=== PATIENT | female | born 1990 | race Asian ===

== ENCOUNTER 2019-04-24 05:24 | Inpatient (IN) | payer BC, MEDICAID ==
[~2019-04-24 05:24] MED LIST: Bicitra 30 ML UDCUP PO SCH; CEFAZOLIN 2 GM in Premix Bag 1 BAG IVPB SCH; Ondansetron PF 4 MG/2 ML Vial IVP PRN; Promethazine HCl 25 MG/ML VIAL IM PRN; hydrALAZINE 20 MG/ML VIAL SLOW IVP PRN
[2019-04-24 06:20] LABS: Hemoglobin 11.2 g/dL (12.0-16.0); Mean Corpuscular HGB CONC 32.1 g/dL (32.0-36.0); Mean Corpuscular Hemoglobin 25.3 pg (27.0-31.0); Mean Corpuscular Volume 78.9 fL (78.0-98.0); RBC Distribution Width 14.9 % (11.5-14.5); Red Blood Cell (RBC) Count 4.44 mill/uL (4.20-5.40); White Blood Cell (WBC) Count 12.8 thou/uL (4.8-10.8)
[2019-04-24 06:23] VITALS: BMI 26.0
[2019-04-24 06:35] LABS: Mean Platelet Volume 11.4 fL (7.4-10.4); Platelet Count 101 thou/uL (130-400)
[2019-04-24 06:47] LABS: HBSAg Index 0.19 S/CO (0-0.99); Hep B Surf Ag Non-Reactive S/CO (NonReactive)
[2019-04-24 06:48] LABS: Syphilis Antibody Nonreactive (Nonreactive); Syphilis Antibody Index 0.04 S/CO (<1.00 Non-Reactive)
[2019-04-24] MEDS ORDERED: Ondansetron PF 4 MG/2 ML Vial ONE (07:11)
[2019-04-24] MEDS ORDERED: Oxytocin 10 UNITS/ML VIAL ONE ×4 (07:11→09:15)
[2019-04-24] MEDS ORDERED: MORPHINE 5 MG/10 ML PF VIAL ONE (07:12)
[2019-04-24] MEDS ORDERED: Promethazine HCl 25 MG/ML VIAL ONE (08:03)
[2019-04-24] MEDS ORDERED: Tranexamic Acid 1,000 MG/10 ML VIAL ONE (08:05)
[2019-04-24] MEDS ORDERED: Methylergonovine 0.2 MG/ML VIAL ONE (08:06)
[2019-04-24] MEDS ORDERED: Midazolam HCl 2 mg/2 ml Vial ONE ×2 (08:12→10:11)
[2019-04-24] MEDS ORDERED: PROPOFOL 20 ML ONE ×4 (08:12→09:44)
[2019-04-24] MEDS ORDERED: PROPOFOL 200 MG/20 ML VIAL ONE (10:00)
[2019-04-24 10:33] LABS: Mean Corpuscular HGB CONC 32.8 g/dL (32.0-36.0); Mean Corpuscular Volume 82.4 fL (78.0-98.0); Mean Platelet Volume 11.2 fL (7.4-10.4); Platelet Count 86 thou/uL (130-400); RBC Distribution Width 14.5 % (11.5-14.5); Red Blood Cell (RBC) Count 4.44 mill/uL (4.20-5.40); White Blood Cell (WBC) Count 14.7 thou/uL (4.8-10.8)
[2019-04-24] MEDS ORDERED: diphenhydrAMINE 50 MG/ML VIAL IVP PRN (10:47)
[2019-04-24] MEDS ORDERED: HYDROmorphone 2 MG/ML VIAL SLOW IVP PRN (10:47)
[2019-04-24] MEDS ORDERED: diphenhydrAMINE 25 MG CAP PO PRN (10:47)
[2019-04-24] MEDS ORDERED: Ondansetron PF 4 MG/2 ML Vial IVP PRN ×2 (10:47)
[2019-04-24] MEDS ORDERED: Naloxone HCl 0.4 mg/ml Vial IV PRN (10:47)
[2019-04-24] MEDS ORDERED: Promethazine HCl 25 MG SUPP PR PRN (10:47)
[2019-04-24] MEDS ORDERED: Meperidine HCl/PF 25 MG/ML VIAL IM PRN (10:47)
[2019-04-24] MEDS ORDERED: Lanolin Ointment 7 GM TUBE TOP PRN (10:47)
[2019-04-24] MEDS ORDERED: Promethazine HCl 25 MG/ML VIAL IM PRN ×2 (10:47)
[2019-04-24] MEDS ORDERED: hydrALAZINE 20 MG/ML VIAL SLOW IVP PRN (10:47)
[2019-04-24] MEDS ORDERED: Bisacodyl 10 MG SUPP PR PRN (10:47)
[2019-04-24] MEDS ORDERED: Meperidine HCl/PF 25 MG/ML VIAL SLOW IVP PRN (10:47)
[2019-04-24] MEDS ORDERED: Ondansetron HCl/PF 4 MG/2 ML Vial IVP PRN (10:47)
[2019-04-24] MEDS ORDERED: Adacel (T-DAP) 0.5 ML SYRINGE IM ONE (10:47)
[2019-04-24] MEDS ORDERED: L&D-Morphine 4 MG/ML VIAL SLOW IVP PRN (10:47)
[2019-04-24] MEDS ORDERED: Naloxone HCl 0.4 mg/ml Vial IVP PRN ×2 (10:47)
[2019-04-24] MEDS ORDERED: Ketorolac Tromethamine 30 MG/ML VIAL IVP SCH (11:00)
[2019-04-24] MEDS ORDERED: Communication Order-Pharmacy FS SCH (11:00)
[2019-04-24] MEDS: Lactated Ringer's 1,000 ML IV SCH ×4 (11:45→20:21)
[2019-04-24] MEDS ORDERED: Morphine 4 MG/ML VIAL ONE (15:34)
[2019-04-24] MEDS ORDERED: Morphine 2 MG/ML SYRINGE SLOW IVP PRN (15:44)
[2019-04-24] MEDS ORDERED: Morphine 4 MG/ML VIAL SLOW IVP PRN (18:45)
[2019-04-24] MEDS: Ibuprofen 800 MG TAB PO SCH ×2 (19:18→22:28)
[2019-04-24] MEDS: Ferrous Sulfate 325 MG TAB PO SCH (21:19)
[2019-04-24] MEDS: Ketorolac Tromethamine 30 MG/ML VIAL IVP PRN (22:24)
[2019-04-24] MEDS: Docusate Calcium (SURFAK) 240 MG CAP PO SCH (22:28)
[2019-04-24] MEDS: Ampicillin/Sulbactam 3 GM in Sodium Chloride 0.9% 100 ML IVPB SCH (22:51)
[2019-04-25] MEDS: HYDROcodone/Acetaminophen 5/325 mg Tablet PO PRN ×5 (00:50→22:22)
[2019-04-25 04:39] LABS: Hemoglobin 9.2 g/dL (12.0-16.0); Mean Corpuscular HGB CONC 33.4 g/dL (32.0-36.0); Mean Corpuscular Volume 80.8 fL (78.0-98.0); Mean Platelet Volume 10.7 fL (7.4-10.4); Platelet Count 93 thou/uL (130-400); RBC Distribution Width 14.5 % (11.5-14.5)
[2019-04-25] MEDS: Ampicillin/Sulbactam 3 GM in Sodium Chloride 0.9% 100 ML IVPB SCH ×2 (05:12→11:10)
[2019-04-25] MEDS: Lactated Ringer's 1,000 ML IV SCH ×4 (05:29→19:23)
[2019-04-25] MEDS: Ferrous Sulfate 325 MG TAB PO SCH ×2 (09:10→21:15)
[2019-04-25] MEDS: Prenatal Vitamin 1 TAB PO SCH (09:11)
[2019-04-25] MEDS: Docusate Calcium (SURFAK) 240 MG CAP PO SCH ×2 (09:11→21:15)
[2019-04-25] MEDS: Ibuprofen 800 MG TAB PO SCH ×3 (10:03→17:11)
[2019-04-25] MEDS: Simethicone Chewable 80 MG TAB PO PRN ×2 (10:42→21:15)
[2019-04-25] MEDS: Ketorolac Tromethamine 30 MG/ML VIAL IVP PRN (10:44)
[2019-04-25] MEDS ORDERED: Sodium Chloride 0.9% 20 ML ONE (10:53)
[2019-04-26] MEDS: Ibuprofen 800 MG TAB PO SCH ×3 (04:50→23:14)
[2019-04-26] MEDS: Lactated Ringer's 1,000 ML IV SCH ×2 (07:30→17:22)
[2019-04-26] MEDS: Docusate Calcium (SURFAK) 240 MG CAP PO SCH ×2 (09:13→23:15)
[2019-04-26] MEDS: Ferrous Sulfate 325 MG TAB PO SCH ×2 (09:13→23:15)
[2019-04-26] MEDS: Simethicone Chewable 80 MG TAB PO PRN (09:13)
[2019-04-26] MEDS: Prenatal Vitamin 1 TAB PO SCH (09:13)
[2019-04-26] MEDS: HYDROcodone/Acetaminophen 5/325 mg Tablet PO PRN ×2 (09:18→12:52)
[2019-04-27 06:26] VITALS: TEMP 98.3
[2019-04-27] MEDS: Ibuprofen 800 MG TAB PO SCH ×2 (07:10→08:17)
[2019-04-27] MEDS: Lactated Ringer's 1,000 ML IV SCH ×2 (08:15→08:35)
[2019-04-27] MEDS: Ferrous Sulfate 325 MG TAB PO SCH (08:17)
[2019-04-27] MEDS: Prenatal Vitamin 1 TAB PO SCH (08:17)
[2019-04-27] MEDS: Docusate Calcium (SURFAK) 240 MG CAP PO SCH (08:19)
[2019-04-27 09:09] VITALS: BP 112/67
--- NOTE | 2019-06-11 15:09 | OP ---
DATE OF PROCEDURE: 04/24/2019 PREOPERATIVE DIAGNOSES: 1. A 28-year-old G1 with complete previa. 2. Low transverse section at 37 weeks and 2 days. 3. Accreta with intraoperative hemorrhage. 4. 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 POSTOPERATIVE DIAGNOSES: 1. A 28-year-old G1 with complete previa. 2. Low transverse section at 37 weeks and 2 days. 3. Accreta with intraoperative hemorrhage. 4. 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 5. Live-born female weighing 6 pounds 2 ounces with Apgars of 8 and 9 respectively. PROCEDURES PERFORMED: 1. Primary low transverse section at 37 weeks and 2 days. 2. Management of intraoperative hemorrhage with packed red blood cells, methargen and tranexamic acid and Bakri balloon placement. ESTIMATED BLOOD LOSS: 3 L. QUANTITATIVE BLOOD LOSS: 3.2 L. ANESTHESIA: Initially a spinal, converted to general anesthesia. CLINICAL HISTORY: This patient is a 28-year-old [place] female who had an OB course complicated by first-trimester bleeding. She was managed on pelvic rest and then at her subsequent ultrasound for anatomy, it was noted that she had a complete previa. The patient was continued on pelvic rest and had no more incidence of spontaneous bleeding. She was also sent to Maternal Medicine for evaluation of the previa as well as the fetus measuring small for gestational age. The recommendation of the maternal medicine specialist was delivery at 37 weeks. Also recommended TORCH titers, which were performed. They did come back positive for CMV and HSV but avidity studies were noted to not be a current infection for either. The patient did have weekly BPPs as well as growth ultrasounds every 2 weeks with stable findings. The risks, benefits, and possible complications as well as alternatives to delivering by primary low-transverse section at 37 weeks was discussed. The patient did have extensive conversations including conversations about the possibility of excessive bleeding and a hysterectomy intraoperatively. The couple was well aware of the risks and was scheduled for a primary section at 37 weeks and 2 days. DESCRIPTION OF PROCEDURE: The patient was taken to the operating room, where spinal anesthesia was obtained. She was laid in the supine position with a leftward tilt and Doptones were obtained, which were normal. The Neonatology team as well as Anesthesia were notified of her current condition and she was typed and crossed for 2 units and placed on hold. The starting hemoglobin was within normal limits. After testing for adequate anesthesia, the incision was made in the Pfannenstiel manner in the lower uterine segment. This incision was carried down to the fascia. The fascia was nicked in the midline. This was extended out bilaterally. The rectus muscles were from the fascia from both the superior and the inferior edge and the rectus muscles were then in the midline. The peritoneum was breached and this incision was extended out with a combination of blunt and sharp dissection. A bladder flap was created after the bladder blade was placed and this bladder flap was placed posterior to the bladder blade. An incision was made higher than typical, but still in the lower uterine segment given the confluence of blood vessels noted on the anterior surface of the uterus, most likely secondary to the lower complete previa. Once this incision was extended, the amniotomy was performed and the vertex was delivered through this incision. The head was delivered followed by the anterior and then the posterior shoulder, then the remainder of the infant. The cord was doubly clamped and cut and the was sent over to the Neonatology team. A cord blood was obtained and then the placenta was removed intact with a three-vessel cord. The exposure after the placenta was removed noted that there was still significant bleeding in the lower uterine segment and near the cervix. Packing was employed and multiple ioymlv-dy-jhorp sutures were performed in the lower uterine segment and the cervical opening to attempt to masoud bleeding. This proved difficult and continued interrupted sutures were performed as well as pressure dressings. The patient continued to trickle and bleed more than the surgeons were comfortable with. At this point, we requested transfusion of 2 packed red blood cell units. The patient had stable vital signs and was getting an increase in fluid volume with crystalloid per Anesthesia. Tranexamic acid was also requested as well as methargen 0.2 mg given IM. The patient unfortunately continued to ooze and a concern for DIC was expressed. After multiple eejusi-ec-izkxa or interrupted sutures were performed across the entirety of the placental bed and the endometrium, the decision was made for a Bakri balloon. The Bakri balloon was opened and passed onto the surgical field. Two conversations were ensued with the patient's as he had left the operating room with the after she was born. These conversations were [id number] and they were notifying the of the current situation and the bleeding status. The was noted that if the bleeding was not able to correct, then she may have to have a hysterectomy. The patient was packed while the surgeon was discussing these matters with the who was in the recovery area. After removing the that is when Bakri balloon decision was made, the balloon was placed and inflated to 150 mL with hemostasis noted. The uterine closure was then performed in the usual fashion with a running locking suture. The bladder flap closure was then performed in a running fashion and Seprafilm was placed over this closure. The gutters were cleansed of all debris and copious irrigation was performed. The patient did receive the appropriate dose of antibiotics given her blood loss. The uterus was placed back into the abdomen and the abdomen was closed by closing the peritoneum with a running closure, then closing and reapproximating the rectus muscles and then the fascial closure was performed in a running manner with excellent hemostasis. The subcutaneous tissues were copiously irrigated and reapproximated with [id number]-[id number] sutures with 2-0 plain gut. The skin closure was done with 4-0 Vicryl on a Toney needle and then reinforced with Steri-Strips and Mastisol. A pressure dressing was placed over this closure. The patient was transferred to the recovery area with continued stable vital signs and was cautiously watched for the next 24 hours by Anesthesia and the primary surgeon. The infant was able to stay with her when she was extubated and general anesthesia had worn off with the father of the baby right at the bedside. The was briefed of the updates and noted that she was able to retain her uterus, tubes, and ovaries with expected vitality, however, caution for the remainder of her hospital course. All needle, sponge, lap, and instrument counts were correct x2 at the end of the procedure and vital signs were stable. Special medications again were Ancef 2 g with a repeat dose, tranexamic acid 1 g, 2 units of packed red blood cells, one dose of Methergine 0.2 mg intramuscularly, and IV crystalloid solution per Anesthesia. There were no other issues surrounding this delivery. Job ID: [id number]
== END 2019-04-27 15:05 | disposition home or self-care (01) | DRG 787 ==
LOC: L&D 05:24 → 3SW 04-25 10:41 → EDSTATUS 05-13 10:52
PROVIDERS: ADMIT Obstetrics & Gynecology; ATTEND Obstetrics & Gynecology
PROC: 10D00Z1 Extraction of Products of Conception, Low, Open Approach (ICD-10-PCS; principal; 2019-04-24)
PROC: 30233N1 Transfusion of Nonautologous Red Blood Cells into Peripheral Vein, Percutaneous Approach (ICD-10-PCS; 2019-04-24)
DX: O34.211 Maternal care for low transverse scar from previous cesarean delivery (principal); O44.03 Complete placenta previa NOS or without hemorrhage, third trimester; O72.1 Other immediate postpartum hemorrhage; D62 Acute posthemorrhagic anemia; O86.12 Endometritis following delivery; Z3A.37 37 weeks gestation of pregnancy; Z37.0 Single live birth; O90.81 Anemia of the puerperium
CPT/HCPCS: 36415; 36430; 51702; 85027; 86780; 86850; 86900; 86901; 87340; 88307; J0295; J0690; J1885; J2210; J2250; J2270; J2274; J2405; J2550; J2590; J2704; J3490; P9016

== ENCOUNTER 2020-04-19 09:29 | Inpatient (IN) | payer BC ==
[2020-04-19] MEDS ORDERED: Bupivacaine/Epinephrine 0.25% 30 ML VIAL ONE (09:42)
[2020-04-19 10:01] VITALS: BMI 26.5
[2020-04-19] MEDS ORDERED: Butorphanol Tartrate 1 MG/ML VIAL SLOW IVP PRN (10:36)
[2020-04-19] MEDS ORDERED: Ibuprofen 800 MG TAB PO PRN (10:36)
[2020-04-19] MEDS ORDERED: Lidocaine 1% (PF) 30 ML VIAL SC PRN (10:36)
[2020-04-19] MEDS ORDERED: NS / Oxytocin 40 units/1000ml 1,000 ML IV PRN (10:36)
[2020-04-19] MEDS ORDERED: hydrALAZINE 20 MG/ML VIAL SLOW IVP PRN (10:36)
[2020-04-19] MEDS ORDERED: Ondansetron PF 4 MG/2 ML Vial IVP PRN (10:36)
[2020-04-19] MEDS ORDERED: Lactated Ringer's 1,000 ML IV SCH (10:45)
[2020-04-19 11:42] LABS: Hemoglobin 12.9 g/dL (12.0-16.0); Mean Corpuscular HGB CONC 33.7 g/dL (32.0-36.0); Mean Corpuscular Hemoglobin 27.8 pg (27.0-31.0); Mean Corpuscular Volume 82.7 fL (78.0-98.0); Mean Platelet Volume 10.5 fL (7.4-10.4); Platelet Count 68 thou/uL (130-400); RBC Distribution Width 13.3 % (11.5-14.5); Red Blood Cell (RBC) Count 4.63 mill/uL (4.20-5.40); White Blood Cell (WBC) Count 10.4 thou/uL (4.8-10.8)
[2020-04-19 12:14] LABS: HBSAg Index 0.21 S/CO (0-0.99); Hep B Surf Ag Non-Reactive S/CO (NonReactive)
[2020-04-19 12:15] LABS: Syphilis Antibody Nonreactive (Nonreactive); Syphilis Antibody Index 0.03 S/CO (<1.00 Non-Reactive)
[2020-04-19 18:43] LABS: SARS-CoV-2 MS2 Positive; SARS-CoV-2 N Gene Negative; SARS-CoV-2 S Gene Negative; SARS-CoV-2 by NAA Not Detected (NotDetected); SARS-CoV-2 orf1ab Negative
[2020-04-19] MEDS ORDERED: NS / Oxytocin 40 units/1000ml 1,000 ML ONE (21:45)
[2020-04-20] MEDS ORDERED: ePHEDrine 50 MG/ML VIAL SLOW IVP PRN (00:12)
[2020-04-20] MEDS ORDERED: diphenhydrAMINE 50 MG/ML VIAL IVP PRN (00:12)
[2020-04-20] MEDS ORDERED: Ondansetron PF 4 MG/2 ML Vial IVP PRN ×2 (00:12→10:40)
[2020-04-20] MEDS ORDERED: Lactated Ringer's 500 ML IV PRN (00:12)
[2020-04-20] MEDS ORDERED: Acetaminophen 325 MG TAB PO PRN (00:12)
[2020-04-20] MEDS ORDERED: Promethazine HCl 25 MG/ML VIAL IM PRN (00:12)
[2020-04-20] MEDS ORDERED: Naloxone HCl 0.4 mg/ml Vial IVP PRN ×2 (00:12)
[2020-04-20] MEDS ORDERED: Communication Order-Pharmacy FS SCH (00:15)
[2020-04-20] MEDS: Lactated Ringer's 1,000 ML IV SCH ×3 (00:19→14:02)
[2020-04-20] MEDS: Fentanyl 4 mcg/Bupivacaine 0.1% Cassette 100 ML EPIDURAL SCH ×2 (00:20→07:23)
[2020-04-20] MEDS ORDERED: Carboprost 250 MCG/ML AMP ONE (09:12)
[2020-04-20] MEDS ORDERED: Misoprostol 200 MCG TAB ONE (09:13)
[2020-04-20] MEDS ORDERED: diphenhydrAMINE 25 MG CAP PO PRN (10:40)
[2020-04-20] MEDS ORDERED: Lanolin Ointment 7 GM TUBE TOP PRN (10:40)
[2020-04-20] MEDS ORDERED: Milk Of Magnesia 30 ML UDCUP PO PRN (10:40)
[2020-04-20] MEDS ORDERED: Benzocaine-Menthol 82.5 ML CAN TOP PRN (10:40)
[2020-04-20] MEDS ORDERED: Adacel (T-DAP) 0.5 ML SYRINGE IM ONE (10:40)
[2020-04-20] MEDS ORDERED: HYDROcodone/Acetaminophen 5/325 mg Tablet PO PRN ×2 (10:40)
[2020-04-20] MEDS ORDERED: hydrALAZINE 20 MG/ML VIAL SLOW IVP PRN (10:40)
[2020-04-20] MEDS ORDERED: Zolpidem Tartrate 5 MG TAB PO PRN (10:40)
[2020-04-20] MEDS ORDERED: Misoprostol 200 MCG TAB VAG PRN (10:40)
[2020-04-20] MEDS ORDERED: Preparation H Ointment 28 GM TUBE PR PRN (10:40)
[2020-04-20] MEDS ORDERED: NS / Oxytocin 40 units/1000ml 1,000 ML IV SCH (10:45)
[2020-04-20] MEDS: Ibuprofen 800 MG TAB PO SCH ×2 (14:45→22:03)
[2020-04-20] MEDS: Ferrous Sulfate 325 MG TAB PO SCH (16:59)
[2020-04-20] MEDS: Docusate Calcium (SURFAK) 240 MG CAP PO SCH (22:03)
[2020-04-21] MEDS: Ibuprofen 800 MG TAB PO SCH ×3 (05:10→21:42)
[2020-04-21] MEDS: Ferrous Sulfate 325 MG TAB PO SCH ×2 (08:37→16:09)
[2020-04-21] MEDS: Prenatal Vitamin 1 TAB PO SCH (08:40)
[2020-04-21] MEDS: Docusate Calcium (SURFAK) 240 MG CAP PO SCH ×2 (08:40→21:42)
[2020-04-21] MEDS: Bisacodyl 10 MG SUPP PR PRN ×2 (08:50→16:33)
[2020-04-21 09:28] LABS: #Eosinphils 0.5 thou/uL (0.0-0.7); #Lymphocytes 2.2 thou/uL (1.20-3.40); #Monocytes 0.7 thou/uL (0.11-0.59); #Neutrophils 9.5 thou/uL (1.40-6.50); %Basophils 0.3 % (0.0-1.0); %Eosinophils 3.6 % (0.0-10.0); %Lymphocytes 17.2 % (21.0-51.0); %Monocytes 5.4 % (0.0-10.0); %Neutrophils 73.5 % (42.0-75.0); Hemoglobin 10.8 g/dL (12.0-16.0); Large Platelets SLIGHT; MDiff Complete? YES; Mean Corpuscular HGB CONC 33.1 g/dL (32.0-36.0); Mean Corpuscular Hemoglobin 27.7 pg (27.0-31.0); Mean Corpuscular Volume 83.8 fL (78.0-98.0); Mean Platelet Volume 10.6 fL (7.4-10.4); Platelet Count 77 thou/uL (130-400); Platelet Morphology Comment Appears Decreased; RBC Distribution Width 13.3 % (11.5-14.5); RBC Morphology Normal; Red Blood Cell (RBC) Count 3.91 mill/uL (4.20-5.40)
[2020-04-22] MEDS: Ibuprofen 800 MG TAB PO SCH ×2 (05:25→14:18)
[2020-04-22] MEDS: Ferrous Sulfate 325 MG TAB PO SCH (07:26)
[2020-04-22 08:25] VITALS: BP 91/51; TEMP 97.9
[2020-04-22] MEDS: Prenatal Vitamin 1 TAB PO SCH (09:23)
[2020-04-22] MEDS: Docusate Calcium (SURFAK) 240 MG CAP PO SCH (09:24)
== END 2020-04-22 16:45 | disposition home or self-care (01) | DRG 806 ==
LOC: L&D/OP 09:29 → L&D 10:45 → 3SW 04-20 13:52
PROVIDERS: ADMIT Obstetrics & Gynecology; ATTEND Obstetrics & Gynecology
PROC: 10D07Z6 Extraction of Products of Conception, Vacuum, Via Natural or Artificial Opening (ICD-10-PCS; principal; 2020-04-19)
PROC: 0KQM0ZZ Repair Perineum Muscle, Open Approach (ICD-10-PCS; 2020-04-19)
DX: O34.211 Maternal care for low transverse scar from previous cesarean delivery (principal); O99.354 Diseases of the nervous system complicating childbirth; Z37.0 Single live birth; Z3A.39 39 weeks gestation of pregnancy; Z20.828 Contact with and (suspected) exposure to other viral communicable diseases; G43.909 Migraine, unspecified, not intractable, without status migrainosus; O70.1 Second degree perineal laceration during delivery
CPT/HCPCS: 36415; 51702; 85025; 85027; 86780; 86850; 86870; 86900; 86901; 86922; 87340; 87635; 99285; J0595; U0003